=== PATIENT | female | born 1965 | race Caucasian/White ===

== ENCOUNTER 2024-04-29 00:51 | Inpatient (IN) | payer OTHER, SELFPAY ==
[2024-04-28 16:09] VITALS: BP 148/95
[2024-04-28 16:37] LABS: % Basophils 0.6 % (0-2); % Eosinophils 0.1 % (0-6); % Immature Granulocytes 0.3 % (0-0.5); % Lymphocytes 8.4 % (20.5-51.1); % Monocytes 6.6 % (1.7-9.3); Absolute Basophils 0.1 10^3/uL (0-0.2); Absolute Lymphocytes 0.8 10^3/uL (1.2-3.4); Absolute Monocytes 0.6 10^3/uL (0.1-0.6); Absolute Neutrophils 7.6 10^3/uL (1.4-6.5); Hematocrit 38.1 % (37.0-47.0); Hemoglobin 14.2 g/dL (12.0-16.0); Mean Corp Hgb Conc. 37.3 g/dL (33.0-37.0); Mean Corpuscular Hgb 31.6 pg (27.0-31.0); Mean Corpuscular Volume 84.9 fL (81.0-99.0); Mean Platelet Volume 10.5 fL (7.4-10.4); Nucleated Red Blood Cells % 0 %; Platelet Count 288 10^3/uL (130-400); Red Blood Cell Count 4.49 10^6/uL (4.20-5.40); Red Cell Dist. Width 11.7 % (11.5-14.5)
[2024-04-28 16:49] LABS: ALT (SGPT) 28 U/L (0-35); AST (SGOT) 45 U/L (14-36); Albumin 4.6 g/dl (3.5-5.0); Alkaline Phosphatase 137 U/L (38-126); Blood Urea Nitrogen 8 mg/dl (7-17); Calcium 9.7 mg/dl (8.4-10.2); Carbon Dioxide 29 mmol/L (22-30); Chloride 92 mmol/L (98-107); Glucose 123 mg/dl (70-99); Potassium 3.1 mmol/L (3.5-5.1); Sodium 132 mmol/L (135-145); Total Bilirubin 1.3 mg/dl (0.2-1.3); Total Protein 7.6 g/dl (6.3-8.2); eGFR > 60.00
[2024-04-28 16:50] LABS: Lipase 76 U/L (23-300)
[2024-04-28 16:58] LABS: HCG, Serum Qualitative Screen Positive
[2024-04-28 19:20] VITALS: BP 149/90
[2024-04-28 20:00] VITALS: BP 130/82
[2024-04-28 20:09] VITALS: BMI 31.4
[2024-04-28 20:37] LABS: Urine Albumin Trace (Neg - Trace); Urine Bilirubin 1+ (Negative); Urine Character Slightly Cloudy (Clear); Urine Color Amber; Urine Glucose Negative (Negative); Urine Ketone 3+ (Negative); Urine Leukocyte 2+ (Negative); Urine Nitrite Negative (Negative); Urine Occult Blood Trace (Negative); Urine Urobilinogen 3+ (Neg - 1+); Urine pH 6.5 (5.0-9.0)
[2024-04-28 21:01] LABS: Urine Bacteria Moderate (Negative); Urine Red Blood Cell 0-2 /HPF (0-2); Urine Squamous Cell >30 /LPF (Few); Urine White Cell 70-80 /HPF (0-5)
[2024-04-28 21:07] LABS: Beta HCG Quantitative 4.35 mIU/ml
[2024-04-28 21:16] VITALS: BP 144/104
[2024-04-28] MEDS: PROTONIX IV 40 MG IV (21:36)
[2024-04-28] MEDS: ZOFRAN 4 MG IV (21:36)
[2024-04-28] MEDS: NSS 1000 IV (21:36)
--- NOTE | 2024-04-28 21:36 | ED.GENMED ---
History of Present Illness
General
Chief Complaint: Abdominal Symptoms
Source: patient
Exam Limitations: none
Time Seen by Provider: 04/28/24 19:48
Nursing documentation reviewed up to this point in time: agreed with
History of Present Illness
History of Present Illness:
58-year-old female with a history of bipolar disorder and chronic GERD on Nexium presents for epigastric discomfort and nausea vomiting newly began 3 days ago. Patient says she vomited many times over the course of 24 hours and had a little bit of
diarrhea as well. After vomiting so much she has pain in both of her ribs when she would move. She says that she really has not been eating much over the last 24 hours because she is afraid she will vomit. She feels dehydrated. She was post to
start an partial program for her depression which has flared up over the last couple months which she presumes is flaring up her GERD because when she is stressed she tends to have more GERD symptoms and she could not start the program today because
of how dehydrated and uncomfortable she felt. She does have epigastric pain. She has not had any pleuritic chest pain, shortness of breath, fever or chills, bloody or black stool, coffee-ground emesis. She does not use marijuana.
She denies any SI
Past History
Past History
ED Past Medical History: GERD and Psychiatric
Social History
Living: with family
Employment: Employed
Review of Systems
Review of Systems
Allergies reviewed?: Yes
All Other Systems: Not applicable
Phy Exam
Physical Exam
Physical Exam:
GENERAL: Alert , in no apparent distress
EYE: pupils equal and reactive
NECK: Supple
ENT: o/p clr, dry mouth
CARDIAC: Regular rate and rhythm .
LUNGS: Clear breath sounds bilaterally, no acute respiratory distress, no wheezes/rales/rhonchi
ABDOMEN: Soft, w tender epigastric region and right upper quadrant without a Simeon's sign no r/g, no cvat, normal bowel sounds
NEUROLOGICAL: Alert and oriented, no focal neuro deficits
SKIN: Warm and dry, skin intact.
MUSCULOSKELETAL: No edema, well perfused. neg thais's sign
PSYCH: Normal and appropriate interaction.
Course
Orders/Labs/Results
Orders:
Orders
04/28/24 16:16
Test Result ONCE
04/28/24 16:24
Beta HCG Quantitative Urgent
Comment: ADDED
Complete Blood Count/With Diff Urgent
Comprehensive Metabolic Panel Urgent
HCG, Serum Qualitative Screen Urgent
Lipase Urgent
04/28/24 20:19
Add On- LAB Urgent
Tests Added?: BETA QUANTITATIVE
Electrocardiogram (*1) Urgent
Reason for Study: Abdominal Pain
EKG- Treatment ONCE
0.9% Sodium Chloride 1000 ml [Nss] 1,000 ml IV BOLUS
Ondansetron Injectable [Zofran] 4 mg IV NOW STA
Pantoprazole [Protonix IV] 40 mg IV NOW STA
04/28/24 20:20
US Abdomen Complete/Upper Urgent
Comment:
Reason For Exam: UPPER ABD PAIN, VOMITNIG
04/28/24 20:29
Urinalysis Reflex To Culture Urgent
Date Specimen was Collected: 04/28/24
Time Specimen was Collected: 20:23
Urine Microscopic Reflex Cult Urgent
Urine Culture Urgent
ROBBIE Source: U
Specimen Description:
Date Specimen was Collected: 04/28/24
Time Specimen was Collected: 20:23
04/28/24 21:16
CT Abd/Pel (IV only)-DH only Urgent
Comment:
Reason For Exam: upper abd
04/28/24 21:22
Sterile Water [Sterile Water For Injection] 10 ml .ROUTE .STK-MED ONE
04/28/24 22:42
Troponin I Urgent
04/28/24 23:56
Ampicillin/Sulbactam 3 G [Unasyn] 3 gm 0.9% Sodium Chloride 100 ml [Nss] 100 ml IV NOW
Abnormal Lab Results
04/28/24 04/28/24
16:24 20:29
MCH 31.6 H pg
(27.0-31.0)
MCHC 37.3 H g/dL
(33.0-37.0)
MPV 10.5 H fL
(7.4-10.4)
Absolute Neuts (auto) 7.6 H 10^3/uL
(1.4-6.5)
Absolute Lymphs (auto) 0.8 L 10^3/uL
(1.2-3.4)
Neutrophils % 84.0 H %
(42.2-75.2)
Lymphocytes % 8.4 L %
(20.5-51.1)
Sodium 132 L mmol/L
(135-145)
Potassium 3.1 L mmol/L
(3.5-5.1)
Chloride 92 L mmol/L
(98-107)
Glucose 123 H mg/dl
(70-99)
AST 45 H U/L
(14-36)
Alkaline Phosphatase 137 H U/L
(38-126)
Urine Ketones 3+ A
(Negative)
Ur Occult Blood Reflex Trace A
(Negative)
Urine Bilirubin 1+ A
(Negative)
Urine Urobilinogen 3+ A
(Neg - 1+)
Leukocyte Esterase Rfl 2+ A
(Negative)
Urine WBC (Reflex) 70-80 A /HPF
(0-5)
Urine Bacteria (Reflex) Moderate A
(Negative)
04/28/24 16:24
04/28/24 16:24
Vital Signs
Initial and Last Documented VS:
Initial Vital Signs
Temp Pulse Resp BP Pulse Ox
37.2 C 95 18 148/95 98
04/28/24 16:09 04/28/24 16:09 04/28/24 16:09 04/28/24 16:09 04/28/24 16:09
Last Documented Vital Signs
Temp Pulse Resp BP Pulse Ox
37.2 C 79 28 144/104 99
04/28/24 16:09 04/28/24 23:15 04/28/24 23:15 04/28/24 21:16 04/28/24 23:15
MDM/Problems Addressed
Differential Diagnosis Includes:
Gastritis, peptic ulcer disease, gastroenteritis, GI bleed, NSTEMI, pancreatitis
MDM/Problems Addressed:
58-year-old female with history of GERD presents for nausea vomiting and epigastric pain over the last several days causing her decreased p.o. intake. She feels dehydrated. She is having some soreness in both ribs after vomiting so much. She
never saw any coffee-ground or black emesis and she has not had any black stool. She has never had any abdominal surgery. She has had endoscopies previously but not recently. On exam she is afebrile, has dry mucous membranes, epigastric
tenderness and right upper quadrant tenderness without a Simeon sign, no abdominal distention. Heart lungs sound good. Her serum hCG qualitative test was positive, her beta hCG is 4. She has no reported history of any endocrine disease, ovarian
cancer or tumors that she knows of.
Patient's white count is normal, her lipase is normal, she has a mild transaminitis with AST of 45 and alk phos of 137. She is pending ultrasound of her right upper quadrant but then with the beta-hCG in the setting of being postmenopausal and not
having had intercourse in several years she will be worked up with a CAT scan.
US shows gallstones and sludge and thickenign of GB wall, no simeon's sign or pericholecystic fluid
her CT --> which was done because of elevated Beta hcg level and concerns for possible occult malignancy causing beta to be 4, was neg for any other obvious concerns other than the GB;
d/w surgery who recommended hospitalist admission
iv unasyn
npo
*Critical Care Note
Total Time (30-74mins, 75-104mins- exclusive of procedures): Not Applicable
ED Attending Note
-
Portions of this chart may have been created with voice recognition software.� Occasional wrong word or��sound alike� substitutions may have occurred due to the inherent limitations of voice recognition software.
Discharge Plan
Departure
Patient Disposition: Admit
Date of Disposition: 04/28/24
Time of Disposition: 23:55
Admit to: Med/Surg
Presentation/result/management discussed w/ accepting MD/DO: Hospitalist
Condition: Fair
Covid-19: Not Applicable
Discharge Problem:
Acute cholecystitis
Prescriptions:
No Action
Risperidone
0.5 mg PO DAILY
Nexium
4 mg PO DAILY
Zoloft:
50 mg PO DAILY
Rhinocort Nasal [place]
2 sprays intranasal BID
BENADRYL
FOLIC ACID
Feosol
Vitamins
Pulmocort Inhaler
10 mcg inhalation BID
Referrals:
John Jorgensen MD [Family Provider] -
Interventions
Interventions:
*Risk Screen - Suicide Last Done: 04/28/24 16:09
*General Assessment Last Done: 04/28/24 16:09
ED- Fall Risk Assessment Last Done: 04/28/24 20:09
*ED COVID-19 Vaccine History Last Done: 04/28/24 20:09
ER-Hdkyim-Clkopqnyce Assessment Last Done: 04/28/24 21:50
Discharge Date and Time
Print Language: QATARI
[2024-04-28 23:13] LABS: Troponin I 0.015 ng/ml
[2024-04-28 23:49] VITALS: BP 153/69
[2024-04-29] VITALS (10 sets, daily range): BP systolic 119–158; BP diastolic 56–92; BMI 31.1
[2024-04-29] MEDS: UNASYN IV ×3 (00:17→12:30)
--- NOTE | 2024-04-29 00:42 | HPS.HSE ---
Family Physician
-
Family Physician: John Jorgensen
Chief Complaint
-
Abdominal pain
History of Present Illness
This is a 58-year-old female with past medical history significant for GERD and bipolar disorder who presents to the emergency department with intermittent epigastric and abdominal pain for the last 3 days.
Patient started having epigastric discomfort with nausea and vomiting about 3 days ago. She reports multiple episodes of vomiting over the last 24 hours with small amount of loose stools. She reports epigastric pain in bilateral lower thoracic and
upper quadrant regions. She reports dry mouth, decreased oral intake over the last 3 to 4 hours. She presumed history of GERD and took some Tums but there was no improvement.
She denies any fevers or chills. She denied any melena, hematochezia or hematemesis. She denies etoh. She denies any drug use.
In the emergency department she was afebrile, blood pressure was 144/100 with a pulse of 79. ECG showed normal sinus rhythm at rate of 81. Troponin was negative. UA was contaminated. She had no leukocytosis and had normal hemoglobin and platelet
count. Electrolytes notable for a sodium of 132 and a potassium of 3.1 otherwise unremarkable. Normal BUN/creatinine. LFTs are within normal limits. Lipase was negative.
Irregular quadrant ultrasound showed sludge filled gallbladder lumen with likely gallstone present, thickened gallbladder wall with pericholecystic edema but negative sonographic Simeon sign. A CT of the abdomen pelvis also showed a 2 cm
noncalcified gallstone. There is surrounding hypodensity of sludge within the gallbladder. There is gallbladder wall thickening with stranding of the adjacent fat which are consistent with acute cholecystitis.
Medical History
Past Medical History
Past Medical History: Reports GERD and Psychiatric (Bipolar disorder)
Past Surgical History: Reports None
Social History
Tobacco: Non-smoker
Alcohol: Former
Drug: None
Personal: Single
Living: With Family
Employment: Employed
Family History
Family History: Not pertinent
Allergies / Home Medications
Allergies reflects when Allergies were last updated in [facility].
Home Medications with original date entered in [facility]
Allergy/Medication List:
Allergies
Allergy/AdvReac Type Severity Reaction Status Date / Time
No Known Allergies Allergy Unverified 01/26/10 16:18
Home Medications
Lorazepam 0.5 mg tablet, 0.5 mg tablet p.o. daily as needed anxiety
Trazodone 50 mg tablet, 50 mg to 100 mg p.o. daily as needed insomnia
Oxcarbazepine 300 mg tablet, take 1 300 mg tablet twice daily
Wellbutrin 150 mg tablet, take 150 mg p.o. daily
Lexapro 25 mg, take 25 mg p.o. daily
Review of Systems
-
Constitutional: Reports No Symptoms
EENT: Reports No Symptoms
Respiratory: Reports No Symptoms
Cardiac: Reports No Symptoms
Abdomen/GI: Reports Abdominal Pain, Nausea and Vomiting
: Reports No Symptoms
Musculoskeletal: Reports No Symptoms
Skin: Reports No Symptoms
Neurological: Reports No Symptoms
Endocrine: Reports No Symptoms
Hematologic/Lymphatic: Reports No Symptoms
Psych: Reports No Symptoms
Physical Exam
Vital Signs
Vital Signs
Temp Pulse Resp BP Pulse Ox
98.9 F 81 24 119/57 98
04/28/24 16:09 04/29/24 00:30 04/29/24 00:30 04/29/24 00:00 04/29/24 00:30
Physical Exam
General: Well Developed, Well Nourished and No Apparent Distress
HEENT: NormoCephalic, Anicteric, Moist mucous membranes and Atraumatic
Respiratory: Clear
Cardiac: S1/S2 and Regular Rhythm
Breast: Deferred by me
GI: Soft, Non Distended, Normal Bowel Sounds and Tender
Rectal: Deferred by Provider
Genito-urinary: Deferred by me
Musculoskeletal: No Clubbing, No Cyanosis and No Edema
Neuro: AO x 3
Hematologic/Lymphatic: No Lymphadenopathy
Psych: Calm
Laboratory Results
-
04/28/24 16:24
04/28/24 16:24
Laboratory Results
Total Bilirubin 1.3 mg/dl (0.2-1.3) 04/28/24 16:24
AST 45 U/L (14-36) H 04/28/24 16:24
ALT 28 U/L (0-35) 04/28/24 16:24
Alkaline Phosphatase 137 U/L (38-126) H 04/28/24 16:24
Troponin I 0.015 ng/ml 04/28/24 22:42
Lipase 76 U/L (23-300) 04/28/24 16:24
Data Reviewed
-
CT Scan: Report Reviewed by me
Ultrasound: Report Reviewed by me
Medical Tests (Nuc Med, Echo, EKG etc): Image Personally Visualized and interpreted
Lab Data: Labs Reviewed by me
Old Records: Reviewed
Impression/Plan
-
IMPRESSION:
58-year-old presenting with nausea vomiting and abdominal pain. Imaging consistent with acute cholecystitis. Differential also includes acute gastritis. UA is equivocal with some positive findings but apparent contamination with squamous cells.
Unlikely UTI. Beta-hCG was elevated. No findings of ovarian or uterine mass.
PLAN:
1. Abdominal pain - U/S and CT c/w acute cholecystitis but no simeon sign. Possibly biliary colic versus gastritis. No evidence of acute pancreatitis
- admit to med/surg
- iv unasyn for now
- pain control and antiemetics
- IV fluids
- npo for now
- PPI iv bid
- surgery consultation. They are aware
2. BIPOLAR
- oral meds on hold pending surg consult [oxcarbamazepine 300 bid, wellbutrin 150, trazodone 50 and lexapro 25)
- prn lorazepam iv for anxiety
DVT PPX - lovenox sq
Code status - full code
[2024-04-29] MEDS: KCL 260 MEQ IV (01:35)
[2024-04-29] MEDS: FLUSH (NSS) 1 FLUSH IV (01:35)
[2024-04-29] MEDS: LR 1000 IV (05:12)
[2024-04-29 06:47] LABS: Hematocrit 32.6 % (37.0-47.0); Hemoglobin 12.1 g/dL (12.0-16.0); Mean Corp Hgb Conc. 37.1 g/dL (33.0-37.0); Mean Corpuscular Hgb 31.8 pg (27.0-31.0); Mean Corpuscular Volume 85.8 fL (81.0-99.0); Mean Platelet Volume 10.7 fL (7.4-10.4); Platelet Count 216 10^3/uL (130-400); Red Cell Dist. Width 11.8 % (11.5-14.5); White Blood Cell Count 8.2 10^3/uL (4.8-10.8)
[2024-04-29 06:55] LABS: Blood Urea Nitrogen 7 mg/dl (7-17); Calcium 8.7 mg/dl (8.4-10.2); Carbon Dioxide 27 mmol/L (22-30); Chloride 97 mmol/L (98-107); Estimated Creatinine Clearance 109 ml/min; Glucose 110 mg/dl (70-99); Magnesium 1.6 mg/dl (1.6-2.3); Potassium 3.1 mmol/L (3.5-5.1); Sodium 133 mmol/L (135-145); eGFR > 60.00
[2024-04-29] MEDS: NSS (PRESERVATIVE FREE) 10 ML IV (09:14)
[2024-04-29] MEDS: PROTONIX IV 40 MG IV (09:14)
--- NOTE | 2024-04-29 09:21 | CON.GS ---
Consultation
-
Requesting Provider: [place]
Performing Provider: Ankush
Reason for Consultation: Biliary colic
Medical History
-
Chief Complaint: Abd pain
History of Present Illness:
58F with acute onset abd pain that began 3 days ago. Localized to epigastrium, a/w n/v. Denies f/c. Denies changes to stool/urine. No relieving or exacerbating factors. This am she feels better. Long hx of reflux pain but this felt different.
Past Medical History
Past Medical History: GERD and Psychiatric (depression)
Past Surgical History: Reviewed & Noncontributory
Social History
Tobacco: Non-Smoker
Alcohol: Former
Drug: None
Personal: Single
Living: With Family
Employment: Employed
Family History
Family History: Reviewed & Not Pertinent
Allergies / Home Medications
Allergy/AdvReac Type Severity Reaction Status Date / Time
No Known Allergies Allergy Unverified 01/26/10 16:18
�Medication �Instructions �Recorded �Confirmed �Type
Nexium 40 mg PO BID 01/26/10 04/29/24 History
Vitamins 1 tab PO DAILY 01/26/10 04/29/24 History
albuterol 90 mcg/actuation aerosol 1 mcg inhalation Q4 PRN wheezing 04/29/24 04/29/24 History
inhaler
bupropion HCl 150 mg 24 hr tablet, 150 mg PO DAILY 04/29/24 04/29/24 History
extended release (Wellbutrin XL)
escitalopram oxalate 20 mg tablet 20 mg PO DAILY 04/29/24 04/29/24 History
escitalopram oxalate 5 mg tablet 5 mg PO DAILY 04/29/24 04/29/24 History
lorazepam 0.5 mg tablet 0.5 mg PO DAILY PRN anxiety 04/29/24 04/29/24 History
oxcarbazepine 300 mg tablet 300 mg PO BID 04/29/24 04/29/24 History
trazodone 50 mg tablet 50 mg PO HS PRN insomnia 04/29/24 04/29/24 History
Review of Systems
-
A 10 point review of systems was completed, and was negative except as per HPI.
Physical Exam
Vital Signs
Temp Pulse Resp BP Pulse Ox
98.9 F 81 26 139/89 98
04/28/24 16:09 04/29/24 08:15 04/29/24 08:15 04/29/24 07:00 04/29/24 08:15
04/28/24 04/29/24 04/30/24
06:59 06:59 06:59
Actual Weight 83 kg 82.214 kg
Body Mass Index (BMI) 31.1
Lab Results
04/29/24 06:18
04/29/24 06:18
WBC 8.2 10^3/uL (4.8-10.8) 04/29/24 06:18
Hgb 12.1 g/dL (12.0-16.0) 04/29/24 06:18
Hct 32.6 % (37.0-47.0) L 04/29/24 06:18
Plt Count 216 10^3/uL (130-400) D 04/29/24 06:18
Abs Immat Gran (auto) 0.0 10^3/uL (0-0.05) 04/28/24 16:24
Neutrophils % 84.0 % (42.2-75.2) H 04/28/24 16:24
Physical Exam
General: Well Developed, Well Nourished and No Apparent Distress
HEENT: Normocephalic and Anicteric
GI: Soft, Non Distended and Tender (mild RUQ ttp)
Skin: Warm and Dry
Neuro: AO x 3
Data Reviewed
-
CT Scan: Image Personally Visualized and interpreted, Report Reviewed by me, Discussed with Physician and Discussed with Patient
Ultrasound: Image Personally Visualized and interpreted, Report Reviewed by me, Discussed with Physician and Discussed with Patient
Labs: Labs Reviewed by me and Discussed with Patient
Old Records: Reviewed
Assessment / Plan
-
58F with biliary colic
Clinically improved this am, mild ttp to RUQ
AFVSS, no leukocytosis
US with stones and sludge, no GBWT nor PCF, no ductal dilation neg sono artis's
CT with distended GB
We discussed surgery today with DC home most likely today vs tomorrow. We also discussed PO challnege, DC home, and return for elective CCY at a date in the near future. Given the holiday and her clinical improvement, she prefers to go home today if
possible
Plan:
PO challenge
DC home if tolerates
--- NOTE | 2024-04-29 13:15 | PTCARENOTE ---
Pt arrived from ED at aprox 0850. Pt able to walk into room unassisted. Admission and assessment done. Vitals stable. No c/o pain at this time. Dr Lechuga in and told patient surgery can be scheduled as outpatient. Pt ordered something to eat and
did fine with it. Dr Lechuga notified and will DC patient home.
--- NOTE | 2024-04-29 13:22 | W.PN.UPDATE ---
Update Note
Progress Note Update
Pt tolerated a small meal without recurrent symptoms. ok for dc
== END 2024-04-29 15:40 | disposition home or self-care (01) | DRG 446 ==
LOC: 2 SOUTH 00:51
PROVIDERS: Emergency Medicine; Physician Assistant; ADMITTING PHYSICIAN Internal Medicine; ATTENDING PHYSICIAN Surgery; EMERGENCY PHYSICIAN Emergency Medicine; FAMILY PHYSICIAN Family Medicine
DX: K80.00 Calculus of gallbladder with acute cholecystitis without obstruction (principal); K21.9 Gastro-esophageal reflux disease without esophagitis; F31.9 Bipolar disorder, unspecified; E86.0 Dehydration; F41.9 Anxiety disorder, unspecified; Z79.899 Other long term (current) drug therapy
CPT/HCPCS: 74177; 76700; 80048; 80053; 81003; 81015; 83690; 83735; 84484; 84702; 84703; 85025; 85027; 87086; 93005; 96361; 96365; 96375; 99285; Q9967

== ENCOUNTER 2024-05-09 09:41 | Inpatient (IN) | payer OTHER, SELFPAY ==
[2024-05-04] VITALS (8 sets, daily range): BP systolic 110–136; BP diastolic 59–73; BMI 31.5
[2024-05-04 12:07] LABS: % Basophils 1.1 % (0-2); % Eosinophils 0.9 % (0-6); % Immature Granulocytes 0.2 % (0-0.5); % Lymphocytes 13.7 % (20.5-51.1); % Monocytes 7.1 % (1.7-9.3); Absolute Basophils 0.1 10^3/uL (0-0.2); Absolute Lymphocytes 0.6 10^3/uL (1.2-3.4); Absolute Monocytes 0.3 10^3/uL (0.1-0.6); Absolute Neutrophils 3.4 10^3/uL (1.4-6.5); Hemoglobin 12.2 g/dL (12.0-16.0); Mean Corpuscular Hgb 31.7 pg (27.0-31.0); Mean Corpuscular Volume 85.7 fL (81.0-99.0); Mean Platelet Volume 11.1 fL (7.4-10.4); Nucleated Red Blood Cells % 0 %; Platelet Count 297 10^3/uL (130-400); Red Blood Cell Count 3.85 10^6/uL (4.20-5.40); Red Cell Dist. Width 11.7 % (11.5-14.5); White Blood Cell Count 4.4 10^3/uL (4.8-10.8)
[2024-05-04 12:27] LABS: ALT (SGPT) 22 U/L (0-35); AST (SGOT) 26 U/L (14-36); Albumin 4.1 g/dl (3.5-5.0); Alkaline Phosphatase 140 U/L (38-126); Blood Urea Nitrogen 5 mg/dl (7-17); Calcium 9.1 mg/dl (8.4-10.2); Carbon Dioxide 32 mmol/L (22-30); Chloride 93 mmol/L (98-107); Glucose 93 mg/dl (70-99); Lipase 161 U/L (23-300); Sodium 135 mmol/L (135-145); Total Bilirubin 0.6 mg/dl (0.2-1.3); Total Protein 6.7 g/dl (6.3-8.2); eGFR > 60.00
[2024-05-04] MEDS: NSS 1000 IV ×2 (14:29→17:21)
[2024-05-04] MEDS: TORADOL 15 MG IV (14:29)
--- NOTE | 2024-05-04 14:32 | ED.GENMED ---
History of Present Illness
General
Chief Complaint: Abdominal Pain
Source: patient
Exam Limitations: none
Time Seen by Provider: 05/04/24 14:12
Nursing documentation reviewed up to this point in time: agreed with
History of Present Illness
History of Present Illness:
Patient is a 58-year-old female with known gallstones presenting to the emergency department persistent epigastric discomfort and mild shortness of breath. Patient recently admitted at overnight with suspected acute cholecystitis, was offered
surgery at that time, although opted for discharge home with elective cholecystectomy in May. She does have a consultation scheduled for mid May with Dr. Ashley.
However�patient states she has had persistent epigastric/right upper quadrant pain and worsening shortness of breath of the past few days. She also feels constipated. She denies any nausea, vomiting, or fever. She has been taking ibuprofen for
pain at home.
Past History
Past History
ED Past Medical History: GERD and Psychiatric
Social History
Living: with family
Employment: Employed
Review of Systems
Review of Systems
Allergies reviewed?: Yes
All Other Systems: ROS reviewed and negative except as documented in HPI and ROS
Phy Exam
Physical Exam
Physical Exam:
Vitals: Patient's vital signs are stable. Afebrile
General: Patient is in no apparent distress. Nontoxic appearing
Skin: Warm and dry, no rashes or lesions
Head: Normocephalic, atraumatic
Eyes: Sclera nonicteric. EOMs intact. No nystagmus.
Throat: Protecting airway
Neck: Normal ROM, no cervical spine tenderness, no meningismus
Cardiac: Regular rate and rhythm, no murmurs.
Pulm: Normal respiratory effort, no wheezes, rales, rhonchi heard on exam.
Abdomen: Abdomen soft. Moderate epigastric and right upper quadrant abdominal pain with positive Simeon sign. No rebound tenderness
Extremities: No evidence of cyanosis or edema. Palpable distal pulses
Neuro: AAOx3. Grossly intact.
Psychiatric: Normal affect.
Course
Orders/Labs/Results
Orders:
Orders
05/04/24 11:53
Electrocardiogram (*1) Urgent
Reason for Study: Abdominal Pain
EKG- Treatment ONCE
05/04/24 11:57
Complete Blood Count/With Diff Urgent
Comprehensive Metabolic Panel Urgent
Lipase Urgent
05/04/24 14:20
0.9% Sodium Chloride 1000 ml [Nss] 1,000 ml IV BOLUS
Ketorolac [Toradol] 15 mg IV NOW STA
05/04/24 14:[address] [CT Abdomen With Iv Contrast] Urgent
Comment: known gallstones
Reason For Exam: RUQ/epigastric pain
05/04/24 14:48
Consult Surgery [SURGICAL CONSULT] Urgent
Consulting Provider: David Ashley
Was physician already notified: Yes
05/04/24 14:52
Piperacillin/Tazo 3.375 Gram [Zosyn] 3.375 gram in 50 ml IV NOW
05/04/24 Dinner
Clear Liquid
At Your Request: Full Participation
05/04/24 15:21
Admit Patient As Directed
Co-Sign Provider:
Level of Care: Observation services
Assign to:: Medical/Surgical
Physician / Group: Dion/General surgery
Diagnosis: Biliary colic
Code Status As Directed
Resuscitation Status: Full Code
Acetaminophen [Tylenol] 650 mg PO Q4HPRN PRN
HYDROmorphone [Dilaudid] 0.25 mg IV Q4HPRN PRN
HYDROmorphone [Dilaudid] 0.5 mg IV Q4HPRN PRN
Oxycodone [Roxicodone] 5 mg PO Q4HPRN PRN
Activity As Directed
Activity Level: Out of Bed-Early Mobility
Anti-embolism (CYNTHIA) Hose As Directed
Type: Thigh high
Intake/ Output As Directed
Frequency: Per unit guidelines
Vital Signs As Directed
Frequency: Per unit guidelines
PRN Pain Medication Management As Directed
May give lesser potent ordered pain med per pt: Yes
preference::
Protocol:: Medication orders for pain may be administered in a
manner that supports deferring to patient preference
when the pt is:
- Requesting an ordered lesser potent pain medication.
Least to most potent pain medications are defined
as: acetaminophen < NSAID < tramadol < opioids
(morphine, oxycodone, hydromorphone).
- Requesting a lesser dose of the same medication IF
ORDERED.
- Requesting a less intrusive route of administration
if both routes are prescribed by the provider (PO <
IV).
05/04/24 15:22
Pneumatic Compression Sleeves As Directed
Type: Thigh high
Rx Incentive Spirometry [RESP] Routine
Frequency: q1h while awake
# of times per hour: 10
DX Deep Vein Thrombosis Video Routine
05/04/24 15:26
Prochlorperazine [Compazine] 10 mg IV Q6HPRN PRN
05/04/24 15:30
0.9% Sodium Chloride 1000 ml [Nss] 1,000 ml IV 80 mls/hr
05/04/24 15:43
Lorazepam [Ativan] 0.5 mg PO DAILY PRN
Trazodone [Desyrel] 50 mg PO HSPRN PRN
05/04/24 15:49
Potassium Chloride [KCl] 40 meq PO NOW STA
05/04/24 20:00
Docusate Sodium [Colace] 100 mg PO BID
Oxcarbazepine [Trileptal] 300 mg PO BID
Pantoprazole [Protonix] 40 mg PO BID
Piperacillin/Tazo 3.375 Gram [Zosyn] 3.375 gram in 50 ml IV Q6H
05/05/24 Breakfast
NPO
Allow oral meds: Yes
Allow clear liquids: No
Complete Blood Count/No Diff IN AM
Comprehensive Metabolic Panel IN AM
Magnesium IN AM
Phos [Phosphorus] IN AM
05/05/24 08:00
Bupropion(24Hr)Extended Releas [WELLBUTRIN XL (24 hour extended release)] 150 mg PO DAILY
Escitalopram Oxalate [Lexapro] 20 mg PO DAILY
Escitalopram Oxalate [Lexapro] 5 mg PO DAILY
Abnormal Lab Results
05/04/24
11:57
WBC 4.4 L 10^3/uL
(4.8-10.8)
RBC 3.85 L 10^6/uL
(4.20-5.40)
Hct 33.0 L %
(37.0-47.0)
MCH 31.7 H pg
(27.0-31.0)
MPV 11.1 H fL
(7.4-10.4)
Absolute Lymphs (auto) 0.6 L 10^3/uL
(1.2-3.4)
Neutrophils % 77.0 H %
(42.2-75.2)
Lymphocytes % 13.7 L %
(20.5-51.1)
Potassium 3.0 L mmol/L
(3.5-5.1)
Chloride 93 L mmol/L
(98-107)
Carbon Dioxide 32 H mmol/L
(22-30)
BUN 5 L mg/dl
(7-17)
Alkaline Phosphatase 140 H U/L
(38-126)
05/04/24 11:57
05/04/24 11:57
Vital Signs
Initial and Last Documented VS:
Initial Vital Signs
Temp Pulse Resp BP Pulse Ox
98 F 82 16 136/73 98
05/04/24 11:50 05/04/24 11:50 05/04/24 11:50 05/04/24 11:50 05/04/24 11:50
Last Documented Vital Signs
Temp Pulse Resp BP Pulse Ox
98.1 F 68 18 123/66 100
05/04/24 17:27 05/04/24 17:27 05/04/24 17:27 05/04/24 17:27 05/04/24 17:27
MDM/Problems Addressed
Differential Diagnosis Includes:
Not limited to: Biliary colic, acute cholecystitis, choledocholithiasis, cholangitis, pancreatitis, etc.
MDM/Problems Addressed:
Patient is a 58-year-old female with known gallstones presenting with persistent epigastric/right upper quadrant tenderness and worsening shortness of breath. Discharge from [facility] 5 days ago after 1 night stay for biliary colic and
similar symptoms. She did prefer outpatient management and elective cholecystectomy in coming months given upcoming holiday. Presents with persistent/worsening pain. No fever or vomiting. No chest pain. Patient has stable vital signs and is
afebrile on arrival today. On exam�she is mildly uncomfortable due to pain although nontoxic appearing. Abdomen is soft with moderate epigastric/right upper quadrant tenderness and positive Simeon sign. Cardio/pulmonary assessment unremarkable.
Labs initiated in triage shows very mild leukopenia. She does have a mild respiratory alkalosis likely secondary to to pain. Mild hypokalemia alk phos slightly higher than prior visit. EKG without any acute ischemic changes. Will start IV fluids
and Toradol for pain.
Given recent admission�case was immediately discussed with general surgeon on-call, Dr. Ashley who recommends repeat CT abdomen. Zosyn initiated in emergency department. Patient admitted to general surgery service in stable condition pending
results of CT scan. Plan for n.p.o. at midnight in OR tomorrow for cholecystectomy.
Chronic conditions affecting care:
Cholelithiasis
Acute Exacerbation and/or Progression of Chronic Illness:
Acute cholecystitis
*Radiology
Radiology exam reviewed: radiology read reviewed
*Pulse Oximetry
Patient hypoxic: no
*EKG
Interpreted by ED Provider?: Yes
EKG Intrepretation Date: 05/04/24
Interpretation: normal
Comparison EKG: changes noted
Heart Rate: 74
Rate: normal
Rhythm: sinus
[place]: normal axis
Interval: normal QT interval
QRS Pattern: normal QRS
Ischemia: non-specific ST changes
*Sharepoint Application Developer Interpretation
Rate: Sharepoint Application Developer- N/A
*Critical Care Note
Total Time (30-74mins, 75-104mins- exclusive of procedures): Not Applicable
Data Reviewed
Review of Other/Old Records Reveals: Labs (Labs from hospital admission on 04/28/2024-no leukocytosis, mild LFT elevation) and Radiology Studies (Abdominal ultrasound from 04/28/2024 showing evidence of gallbladder sludge and slightly thickened
gallbladder wall)
Source: previous hospital records
Further Testing Considered But Not Given:
Consider repeat abdominal ultrasound although will obtain abdominal CT for better visualization per general surgery request
Patient Management
Discussion with other providers: Records Management Clerk (General Surgery-Dr. Ashley)
Escalation/DeEscalation of care consider admission/obs:
Admit to general surgery service�plan for OR tomorrow for cholecystectomy
ED Attending Note
-
Portions of this chart may have been created with voice recognition software.� Occasional wrong word or��sound alike� substitutions may have occurred due to the inherent limitations of voice recognition software.
Discharge Plan
Departure
Patient Disposition: Admit
Date of Disposition: 05/04/24
Time of Disposition: 15:50
Presentation/result/management discussed w/ accepting MD/DO: Dr. Ashley
Discharge Problem:
Acute cholecystitis
Interventions
Interventions:
*Risk Screen - Suicide Last Done: 05/04/24 11:50
*General Assessment Last Done: 05/04/24 14:13
*Neglect/Abuse Screening Last Done: 05/04/24 11:50
ED- Fall Risk Assessment Last Done: 05/04/24 16:57
*ED COVID-19 Vaccine History Last Done: 05/04/24 14:13
*Nursing Disposition Last Done: 05/04/24 16:57
VZ-Jppccq-Zdykduuwvx Assessment Last Done: 05/04/24 14:13
Discharge Date and Time
Discharge Date/Time: 05/04/24 17:11
[2024-05-04] MEDS: ZOSYN 50 IV ×2 (14:58→19:46)
--- NOTE | 2024-05-04 15:20 | HPS.HSE ---
Family Physician
-
Family Physician: John Jorgensen
Chief Complaint
-
Abdominal pain
History of Present Illness
Ms Deras is a 58 yo female with a h/o GERD and bipolar depression who presented through the ED with persistent RUQ discomfort with nausea and vomiting. She initially presented through the ED on 04/28 with localized epigastric pain with n/v with US
imaging at that time with sludge in the gallbladder lumen with slightly thickened wall without pericholecystic edema. Ct in follow up with 2cm gallstone in addition to the sludge with some thickening of the gallbladder wall and adjacent
inflammation. She had normal LFT's and no leukocytosis at that time. She felt better by the next morning with successful PO challenge and in light of the holiday, opted to follow up as an outpatient for planned cholecystectomy at a later date. She
presents today as her pain has become more persistent. Over the past week, she has noted it mostly at night with worsening symptoms of GERD. Since last night, the pain was quite persistent with nausea and vomiting and she presents once again for
evaluation. She denies jaundice or acholic stools. She notes constipation over the past week but was able to pass some bob of stool today with some sensation of relief. On exam, she is tender to the RUQ.
Medical History
Past Medical History
Past Medical History: Reports Asthma, GERD and Psychiatric (bipolar depression)
Past Surgical History: Reports Orthopedic (foot surgery)
Social History
Tobacco: Non-smoker
Alcohol: None
Family History
Family History: Not pertinent
Allergies / Home Medications
Allergies reflects when Allergies were last updated in [employer].
Home Medications with original date entered in [facility]
Allergy/Medication List:
Patient Allergies
Allergy/AdvReac Type Severity Reaction Status Date / Time
No Known Allergies Allergy Verified 05/04/24 11:50
Home meds:
Lorazepam 0.5 mg tablet, 0.5 mg tablet p.o. daily as needed anxiety
Trazodone 50 mg tablet, 50 mg to 100 mg p.o. daily as needed insomnia
Oxcarbazepine 300 mg tablet, take 1 300 mg tablet twice daily
Wellbutrin 150 mg tablet, take 150 mg p.o. daily
Lexapro 25 mg, take 25 mg p.o. daily
Review of Systems
-
History Source: Patient
A 12 point ROS was completed and negative except as noted: Yes
Physical Exam
Vital Signs
Vital Signs
Temp Pulse Resp BP Pulse Ox
98 F 75 16 126/69 100
05/04/24 11:50 05/04/24 14:23 05/04/24 11:50 05/04/24 14:20 05/04/24 14:21
Physical Exam
General: Well Developed and Well Nourished
HEENT: NormoCephalic and Moist mucous membranes
Respiratory: Non Labored Respirations
GI: Soft, Non Distended and Tender (RUQ)
Skin: Warm and Dry
Neuro: Awake, Alert and AO x 3
Psych: Calm
Laboratory Results
-
05/04/24 11:57
05/04/24 11:57
Laboratory Results
Total Bilirubin 0.6 mg/dl (0.2-1.3) 05/04/24 11:57
AST 26 U/L (14-36) 05/04/24 11:57
ALT 22 U/L (0-35) 05/04/24 11:57
Alkaline Phosphatase 140 U/L (38-126) H 05/04/24 11:57
Lipase 161 U/L (23-300) 05/04/24 11:57
Data Reviewed
-
CT Scan: Image Personally Visualized and interpreted, Report Reviewed by me, Discussed with Physician and Discussed with Patient
Ultrasound: Report Reviewed by me, Discussed with Physician and Discussed with Patient
Lab Data: Labs Reviewed by me, Discussed with Physician and Discussed with Patient
Old Records: Reviewed
Impression/Plan
-
IMPRESSION:
58 yo female with recurrent biliary colic presenting with persistent pain with n/v concerning for acute calculous cholecystitis. LFT's normal except for mild elevation in alk phos. Mild leukopenia. Hypokalemia present. RUQ tenderness present on
exam. Noted constipation but denies acholic stools and able to pass BM today. AFVSS.
PLAN:
Check CT of the abd/pelvis to further evaluate
Continue IV zosyn which was initiated in the ED
Trend labs
IVF with NSS at 80ml/hr, Replace KCl
Clears tonight and NPO after MN
Plan OR tomorrow for lap yazmin
c/w home meds
bowel regimen with colace BID
SCDs for VTE ppx
[2024-05-04] MEDS: KCL 40 MEQ PO (16:54)
[2024-05-04] MEDS: COLACE 100 MG PO (19:43)
[2024-05-04] MEDS: PROTONIX 40 MG PO (19:44)
[2024-05-04] MEDS: TRILEPTAL 300 MG PO (19:45)
[2024-05-04] MEDS: DESYREL 50 MG PO (23:28)
[2024-05-05] VITALS (11 sets, daily range): BP systolic 0–121; BP diastolic 52–70; BMI 31.5
[2024-05-05] MEDS: ZOSYN 50 IV ×4 (01:28→20:17)
[2024-05-05] MEDS: NSS 1000 IV ×2 (05:17→20:17)
[2024-05-05 06:29] LABS: Mean Corp Hgb Conc. 36.4 g/dL (33.0-37.0); Mean Corpuscular Hgb 31.3 pg (27.0-31.0); Mean Corpuscular Volume 86.2 fL (81.0-99.0); Mean Platelet Volume 11.1 fL (7.4-10.4); Platelet Count 329 10^3/uL (130-400); Red Blood Cell Count 3.83 10^6/uL (4.20-5.40); Red Cell Dist. Width 11.9 % (11.5-14.5); White Blood Cell Count 3.9 10^3/uL (4.8-10.8)
[2024-05-05 06:51] LABS: ALT (SGPT) 20 U/L (0-35); AST (SGOT) 26 U/L (14-36); Albumin 3.7 g/dl (3.5-5.0); Alkaline Phosphatase 130 U/L (38-126); Blood Urea Nitrogen 2 mg/dl (7-17); Calcium 8.7 mg/dl (8.4-10.2); Carbon Dioxide 29 mmol/L (22-30); Chloride 99 mmol/L (98-107); Estimated Creatinine Clearance 82 ml/min; Glucose 102 mg/dl (70-99); Magnesium 1.7 mg/dl (1.6-2.3); Phosphorus 3.2 mg/dl (2.5-4.5); Potassium 3.5 mmol/L (3.5-5.1); Sodium 137 mmol/L (135-145); Total Bilirubin 0.6 mg/dl (0.2-1.3); Total Protein 6.2 g/dl (6.3-8.2); eGFR > 60.00
[2024-05-05] MEDS: PROTONIX 40 MG PO ×2 (09:02→20:18)
[2024-05-05] MEDS: COLACE 100 MG PO ×2 (09:02→20:18)
[2024-05-05] MEDS: LEXAPRO 20 MG PO (09:02)
[2024-05-05] MEDS: WELLBUTRIN XL (24 hour extended release) 150 MG PO (09:02)
[2024-05-05] MEDS: LEXAPRO 5 MG PO (09:02)
[2024-05-05] MEDS: TRILEPTAL 300 MG PO ×2 (09:08→20:18)
--- NOTE | 2024-05-05 09:48 | W.SUR.PREOP ---
Pre-Operative Surgical Note
-
I have examined this patient prior to the performance of the scheduled procedure.
The patient's condition is unchanged from the time of the current History and
Physical and the patient is able to undergo the scheduled procedure.
--- NOTE | 2024-05-05 12:36 | CM ---
Addendum entered by Kristin Clark 05/05/24 15:53:
Home health referral placed via [facility].
Addendum entered by Kristin Clark 05/05/24 12:48:
CM consult placed for advanced directives. Patient was given packet and CM went over packet with patient. She was given a pen and would like to work on it alone.
Original Note:
Reviewed chart. Patient is here for biliary colic. She is alert and oriented. CM introduced self and role. Patient is independent. She drives. Currently not working. 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 Has a 1st floor apartment
with [address]. Also has a 14 year old daughter who lives in [place]. She does not own any DME. Denies any +SDOHs. Her mother owns a walker. Exlpained commercial DENNISON form to patient, who verbalized understanding and signed. Patient given a copy. Original
placed on patient's clipboard on 1 ACUTE.
Patient stated that she would like to have PT/SN come out to her home upon discharge.
ANTICIPATED DISCHARGE PLAN: Discharge home with [facility] services, when medically cleared.
--- NOTE | 2024-05-05 15:19 | W.IMMPOSTOP ---
Surgical Immed Post Op Note
-
Primary Surgeon: David Ashley MD
Assisting Surgeon: Jase Cottrell MD
Pre-op Diagnosis: Acute cholecystitis
Post-op Diagnosis: Gangrenous cholecystitis
Procedure Performed: Laparoscopic cholecystectomy with cholangiogram
Anesthesia Type: General
Specimen / Cultures: Gallbladder and contents
Estimated Blood Loss: 31 cc
Complications: None
Operative Findings: Veress needle entry. Acutely inflamed gallbladder with severely thickened wall and dense adhesions to the second part of the duodenum there were lysed using sharp and blunt dissection. We performed a top-down cholecystectomy up
to the neck of the gallbladder where a roughly 2 cm stone was lodged. The duct was fully opened and the stone was released. A cholangiogram was performed which demonstrated normal biliary anatomy and no distal filling defects. The duct was closed
with 3 interrupted 0 silk sutures. The field was sprayed with Floseal help with hemostasis and a 19 Japanese round Kingsley drain was introduced through the right lateralmost port and laid across our field. This was secured to the skin with a 2-0 nylon
suture.
POST OP PLAN:
Imaging: None
Labs: Routine AM
Diet: Clears
Analgesia: Tylenol 650mg q6 Aron, Jayda 5mg q6 PRN, Dilaudid 0.5mg q2h PRN
Neuro/vascular checks: q4h
AC/AP: Hold Therapeutic AC, Ok for DVT PPx
Activity: Ad Juanita
Wound/Incisions/Drains: Routine, continue ELIZ to bulb suction. If bile noted in the drain, will consult GI for possible ERCP/stenting.
Abx: Continue Zosyn while admitted, plan for a 4-day course of antibiotics total.
Dispo: RNF
[2024-05-05] MEDS: DILAUDID 0.5 MG IV (17:23)
--- NOTE | 2024-05-05 17:30 | PTCARENOTE ---
Pt received from PACU, currently in 6/10 R sided pain. Pt is slightly drowsy. Vitals obtained. Pt attempting a clear liquid tray for dinner.
[2024-05-05] MEDS: ROXICODONE 5 MG PO ×2 (18:50→22:50)
[2024-05-05] MEDS: DESYREL 50 MG PO (21:58)
[2024-05-06] MEDS: ZOSYN 50 IV ×4 (01:49→19:55)
[2024-05-06] MEDS: DILAUDID 0.5 MG IV ×4 (02:35→22:43)
[2024-05-06] MEDS: ATIVAN 0.5 MG PO (03:36)
[2024-05-06 07:40] VITALS: BP 118/72
[2024-05-06] MEDS: COLACE 100 MG PO ×2 (07:58→19:54)
[2024-05-06] MEDS: WELLBUTRIN XL (24 hour extended release) 150 MG PO (07:59)
[2024-05-06] MEDS: LEXAPRO 20 MG PO (07:59)
[2024-05-06] MEDS: LEXAPRO 5 MG PO (07:59)
[2024-05-06] MEDS: PROTONIX 40 MG PO ×2 (07:59→19:54)
[2024-05-06] MEDS: TRILEPTAL 300 MG PO ×2 (07:59→19:54)
--- NOTE | 2024-05-06 10:54 | VNURNOTE ---
Home Health Liaison met with patient to discuss [facility] nurse/therapy, visits, schedule and homebound status. Patient is agreeable and understands that visits at home will be 2-3 x per week to assess and teach medical and drain management. [facility]
brochure provided with contact information. Patient is aware that [facility] will contact them for start of care in 1-2 days after discharge from .
[facility] referral updated in [facility].
--- NOTE | 2024-05-06 11:27 | W.PN.GS2 ---
Today's Communication / Plan
-
-- LFD
-- Pain control: Tylenol, Toradol, Oxycodone
-- HLIV
-- Maintain ELIZ, likely on DC
-- Zosyn, plan for 4 days total abx
Assessment / Plan
-
Patient is a 58 yo F POD#1 s/p laparoscopic subtotal cholecystectomy with IOC
AVSS
Labs with mild leukopenia, Hb stable, bilirubin and LFTs normal down trending ALP
ELIZ non-bilious
Recovering well overall. Monitor in hospital today due to complexity of procedure and risk for cystic duct stump leak.
-- LFD
-- Pain control: Tylenol, Toradol, Oxycodone
-- HLIV
-- Maintain ELIZ, likely on DC
-- Zosyn, plan for 4 days total abx
-- DVT: Lovenox
-- GI: chronic PPI
Subjective Data
-
Date of Service: May 06, 2024
Reports abdominal discomfort. No nausea or vomiting. No fevers. Passing flatus, no BM. Minimal ambulation.
Objective Data
-
Intake and Output
05/05/24 05/06/24 05/07/24
06:59 06:59 06:59
Intake Total 1939 2560 / 2560 700 / 700
Output Total 40 / 40
Balance 1939 2520 / 2520 700 / 700
Intake:
Oral fluids 960 / 960 840 / 840 650 / 650
IV fluids (Total) 880 / 880 1620 / 1620
normosol 100 / 100
IV piggybacks 100 / 100 100 / 100 50 / 50
Output:
Drain Output (Total) 40 / 40
Right Lower Abdomen Syed- 40 / 40
Olivier
Other:
Number of approximated MODERATE 3 2 1
amounts of urine
Number of approximated LARGE 1
amounts of urine
Vital Signs
Temp Pulse Resp BP Pulse Ox
98.7 F 89 17 118/72 96
05/06/24 07:40 05/06/24 07:40 05/06/24 07:40 05/06/24 07:40 05/06/24 07:40
Lab Results
05/05/24 06:08
05/05/24 06:08
Calcium 8.7 mg/dl (8.4-10.2) 05/05/24 06:08
Phosphorus 3.2 mg/dl (2.5-4.5) 05/05/24 06:08
Magnesium 1.7 mg/dl (1.6-2.3) 05/05/24 06:08
Total Bilirubin 0.6 mg/dl (0.2-1.3) 05/05/24 06:08
AST 26 U/L (14-36) 05/05/24 06:08
ALT 20 U/L (0-35) 05/05/24 06:08
Alkaline Phosphatase 130 U/L (38-126) H 05/05/24 06:08
Total Protein 6.2 g/dl (6.3-8.2) L 05/05/24 06:08
Albumin 3.7 g/dl (3.5-5.0) 05/05/24 06:08
Physical Exam
-
Gen: NAD
Abd: soft, mild tenderness, ND, non-peritoneal, incisions c/d/i - no eriythema, ecchymosis or drainage, ELIZ serosang, non-bilious
[2024-05-06] MEDS: TYLENOL 650 MG PO ×2 (15:32→23:04)
[2024-05-06 15:46] VITALS: BP 121/73
[2024-05-06] MEDS: ROXICODONE 5 MG PO (19:53)
[2024-05-06 22:23] LABS: COVID-19 Antigen Negative (Negative)
--- NOTE | 2024-05-06 22:30 | PTCARENOTE ---
Pt states she had a sore throat prior to coming to the ED a few days ago, reports since she's been here she's had progressive URI sx including sore throat and now a nonproductive cough. Pt spiked a fever this afternoon, blood cultures sent on day
shift. D/w covering SUPERVISOR RESEARCH KENNEL, due to worsening symptoms and pt complaints, flu/Covid specimen ordered and sent. Pt positive for Flu A; pt's roommate relocated to a private room, pt placed on droplet precautions, nursing open pit quarry supervisor aware.
[2024-05-06] MEDS: DESYREL 50 MG PO (22:38)
[2024-05-06 23:11] VITALS: BP 122/69
[2024-05-07] MEDS: ZOSYN 50 IV ×4 (02:07→21:30)
[2024-05-07] MEDS: ROXICODONE 5 MG PO (06:09)
--- NOTE | 2024-05-07 06:51 | W.PN.UPDATE ---
Update Note
Progress Note Update
T max 103 F overnight + Flu A. Tamiflu started.
[2024-05-07 07:28] LABS: Hematocrit 29.4 % (37.0-47.0); Hemoglobin 10.5 g/dL (12.0-16.0); Mean Corp Hgb Conc. 35.7 g/dL (33.0-37.0); Mean Corpuscular Hgb 31.5 pg (27.0-31.0); Mean Corpuscular Volume 88.3 fL (81.0-99.0); Mean Platelet Volume 10.8 fL (7.4-10.4); Platelet Count 206 10^3/uL (130-400); Red Blood Cell Count 3.33 10^6/uL (4.20-5.40); Red Cell Dist. Width 11.9 % (11.5-14.5); White Blood Cell Count 4.1 10^3/uL (4.8-10.8)
[2024-05-07 07:35] VITALS: BP 128/62
[2024-05-07] MEDS: TAMIFLU 75 MG PO ×2 (07:39→21:29)
[2024-05-07] MEDS: TYLENOL 650 MG PO ×3 (07:39→20:47)
[2024-05-07] MEDS: PROTONIX 40 MG PO ×2 (07:39→20:47)
[2024-05-07] MEDS: LEXAPRO 5 MG PO (07:39)
[2024-05-07] MEDS: LEXAPRO 20 MG PO (07:39)
[2024-05-07] MEDS: TRILEPTAL 300 MG PO ×2 (07:39→20:47)
[2024-05-07] MEDS: WELLBUTRIN XL (24 hour extended release) 150 MG PO (07:39)
[2024-05-07] MEDS: COLACE 100 MG PO ×2 (07:40→20:47)
[2024-05-07 07:46] LABS: ALT (SGPT) 47 U/L (0-35); AST (SGOT) 87 U/L (14-36); Albumin 3.1 g/dl (3.5-5.0); Alkaline Phosphatase 142 U/L (38-126); Blood Urea Nitrogen 4 mg/dl (7-17); Calcium 7.8 mg/dl (8.4-10.2); Carbon Dioxide 31 mmol/L (22-30); Chloride 94 mmol/L (98-107); Estimated Creatinine Clearance 94 ml/min; Glucose 105 mg/dl (70-99); Potassium 2.9 mmol/L (3.5-5.1); Sodium 131 mmol/L (135-145); Total Bilirubin 0.6 mg/dl (0.2-1.3); Total Protein 5.4 g/dl (6.3-8.2); eGFR > 60.00
--- NOTE | 2024-05-07 11:15 | PTCARENOTE ---
MD Holcomb notified of abnormal lab values and need for gavin site dressing site change d/t drainage.
[2024-05-07 13:57] LABS: Urine Albumin Negative (Neg - Trace); Urine Bilirubin Negative (Negative); Urine Character Clear (Clear); Urine Color Yellow; Urine Glucose Negative (Negative); Urine Ketone Negative (Negative); Urine Leukocyte Negative (Negative); Urine Nitrite Negative (Negative); Urine Occult Blood Negative (Negative); Urine Specific Gravity 1.005 (<1.030); Urine Urobilinogen Negative (Neg - 1+)
[2024-05-07 15:30] VITALS: BP 130/67
[2024-05-07] MEDS: TORADOL 15 MG IV (15:45)
--- NOTE | 2024-05-07 16:13 | W.PN.GS2 ---
Today's Communication / Plan
-
-- Clears, NPO PM
-- Resume IVF
-- Replete K with Kdur and Cl with IVF --> repeat CMP this afternoon, check Mg
-- Abx: Zosyn, tentative plan for 4 days total abx, started on Tamiflu
Assessment / Plan
-
Patient is a 58 yo F POD#2 s/p laparoscopic subtotal cholecystectomy with IOC
Febrile, VSS
Labs with mild leukopenia, Hb stable, bilirubin normal, LFTs and ALP trending up
ELIZ non-bilious
Fever of unknown exact origin differential includes fluid positive versus intra-abdominal process. UA negative, CXR without infiltrate, BCx pending. ELIZ output reassuring with lack of bilious or feculent outputs (appears in appropriate position on
CXR). Continued abdominal discomfort though non-peritoneal and discomfort not worse from previous. Repeat electrolytes. Repeat CMP to gauge electrolyte repletion and monitor LFTs. If LFTs continue to rise would obtain a CT scan, consider GI
consult.
-- Clears, NPO PM
-- Pain control: Tylenol, Toradol, Oxycodone
-- Resume IVF
-- Replete K with Kdur and Cl with IVF --> repeat CMP this afternoon, check Mg
-- Maintain ELIZ
-- Abx: Zosyn, tentative plan for 4 days total abx, started on Tamiflu, blood cx pending
-- DVT: Lovenox
-- GI: chronic PPI
Subjective Data
-
Date of Service: May 07, 2024
With sore throat and abdominal soreness. Abdominal discomfort worse with movement and coughing. Denies any nausea or vomiting. Passing flatus, no BM. Febrile. Found to be flu positive. Voiding. Ambulating. Denies dizziness or
lightheadedness. No chest pain or shortness of breath. No urinary symptoms.
Objective Data
-
Intake and Output
05/06/24 05/07/24 05/08/24
06:59 06:59 06:59
Intake Total 2560 / 2560 2005 740 / 740
Output Total 250 / 250
Balance 2520 / 2520 1921 / 1921 490 / 490
Intake:
Oral fluids 840 / 840 1856 / 1856 640 / 640
IV fluids (Total) 1620 / 1620
normosol 100 / 100
IV piggybacks 100 / 100 150 / 150 100 / 100
Output:
Drain Output (Total)
Right Lower Abdomen Syed-
Olivier
Urine, Voided 250 / 250
Other:
Number of approximated MODERATE 2 1
amounts of urine
Number of approximated LARGE 1
amounts of urine
How many times incontinent 4
MODERATE amount urine
Vital Signs
Temp Pulse Resp BP Pulse Ox
102.0 F H 83 17 130/67 98
05/07/24 15:30 05/07/24 15:30 05/07/24 15:30 05/07/24 15:30 05/07/24 15:30
Lab Results
05/07/24 06:55
Calcium 7.8 mg/dl (8.4-10.2) L 05/07/24 06:55
Phosphorus 3.2 mg/dl (2.5-4.5) 05/05/24 06:08
Magnesium 1.7 mg/dl (1.6-2.3) 05/05/24 06:08
Total Bilirubin 0.6 mg/dl (0.2-1.3) 05/07/24 06:55
AST 87 U/L (14-36) H 05/07/24 06:55
ALT 47 U/L (0-35) H 05/07/24 06:55
Alkaline Phosphatase 142 U/L (38-126) H 05/07/24 06:55
Total Protein 5.4 g/dl (6.3-8.2) L 05/07/24 06:55
Albumin 3.1 g/dl (3.5-5.0) L 05/07/24 06:55
Physical Exam
-
Gen: NAD, weak
Abd: soft, tender in RUQ, ND, no diffuse peritonitis, incision c/d/i - no erythema, ecchymosis or drainage, ELIZ serosang, non-bilious
[2024-05-07] MEDS: NSS 1000 IV (16:22)
[2024-05-07] MEDS: KCL 40 MEQ PO ×2 (16:29→17:43)
[2024-05-07 16:48] LABS: ALT (SGPT) 43 U/L (0-35); AST (SGOT) 64 U/L (14-36); Albumin 3.1 g/dl (3.5-5.0); Alkaline Phosphatase 137 U/L (38-126); Blood Urea Nitrogen 5 mg/dl (7-17); Calcium 7.9 mg/dl (8.4-10.2); Carbon Dioxide 31 mmol/L (22-30); Chloride 95 mmol/L (98-107); Estimated Creatinine Clearance 94 ml/min; Glucose 102 mg/dl (70-99); Magnesium 1.6 mg/dl (1.6-2.3); Sodium 130 mmol/L (135-145); Total Bilirubin 0.4 mg/dl (0.2-1.3); Total Protein 5.4 g/dl (6.3-8.2); eGFR > 60.00
[2024-05-07] MEDS: DESYREL 50 MG PO (21:29)
[2024-05-07] MEDS: ATIVAN 0.5 MG PO (21:29)
[2024-05-07 23:18] VITALS: BP 96/60
[2024-05-08] MEDS: ZOSYN 50 IV ×4 (02:51→20:32)
[2024-05-08] MEDS: NSS 1000 IV (04:21)
[2024-05-08] MEDS: ROXICODONE 5 MG PO (04:24)
[2024-05-08 07:37] VITALS: BP 133/78
[2024-05-08 08:12] LABS: Hematocrit 30.4 % (37.0-47.0); Hemoglobin 10.5 g/dL (12.0-16.0); Mean Corp Hgb Conc. 34.5 g/dL (33.0-37.0); Mean Corpuscular Hgb 31.2 pg (27.0-31.0); Mean Corpuscular Volume 90.2 fL (81.0-99.0); Mean Platelet Volume 11.2 fL (7.4-10.4); Platelet Count 202 10^3/uL (130-400); Red Blood Cell Count 3.37 10^6/uL (4.20-5.40); Red Cell Dist. Width 12.1 % (11.5-14.5); White Blood Cell Count 1.6 10^3/uL (4.8-10.8)
[2024-05-08 08:48] LABS: ALT (SGPT) 40 U/L (0-35); AST (SGOT) 48 U/L (14-36); Alkaline Phosphatase 125 U/L (38-126); Blood Urea Nitrogen 3 mg/dl (7-17); Carbon Dioxide 27 mmol/L (22-30); Chloride 99 mmol/L (98-107); Estimated Creatinine Clearance 94 ml/min; Glucose 90 mg/dl (70-99); Potassium 3.3 mmol/L (3.5-5.1); Sodium 135 mmol/L (135-145); Total Bilirubin 0.4 mg/dl (0.2-1.3); Total Protein 5.4 g/dl (6.3-8.2); eGFR > 60.00
[2024-05-08] MEDS: TAMIFLU 75 MG PO ×2 (08:49→20:33)
[2024-05-08] MEDS: TRILEPTAL 300 MG PO ×2 (08:50→20:33)
[2024-05-08] MEDS: LEXAPRO 20 MG PO (08:50)
[2024-05-08] MEDS: LEXAPRO 5 MG PO (08:50)
[2024-05-08] MEDS: WELLBUTRIN XL (24 hour extended release) 150 MG PO (08:50)
[2024-05-08] MEDS: COLACE 100 MG PO ×2 (08:50→20:33)
[2024-05-08] MEDS: PROTONIX 40 MG PO ×2 (08:50→20:33)
[2024-05-08] MEDS: TORADOL 15 MG IV ×2 (09:11→20:46)
--- NOTE | 2024-05-08 10:56 | W.PN.GS2 ---
Today's Communication / Plan
-
Tamiflu ordered
Resume regular diet
Isolated leukopenia has been reported in the setting of fluA
Will replete lytes.
Continue antibiotics.
Anticipate discharge tomorrow versus Sunday pending clinical course.
Assessment / Plan
-
Patient is a 58 yo F POD#3 s/p laparoscopic cholecystectomy with IOC and suture ligation of the cystic duct. Now with +FluA.
Tamiflu ordered
Resume regular diet
Isolated leukopenia has been reported in the setting of fluA
Will replete lytes.
Continue antibiotics.
Anticipate discharge tomorrow versus Sunday pending clinical course.
Time Spent
Total Time Spent with Patient (in minutes): 20
Subjective Data
-
Date of Service: May 08, 2024
Interval Events:
No acute events overnight. Still intermittently febrile. Now leukopenic to 1.6K. Still has some residual hypokalemia. Pain Controlled. Denies Nausea/Vomiting, +bowel function. Tolerating diet.
Objective Data
-
Intake and Output
05/07/24 05/08/24 05/09/24
06:59 06:59 06:59
Intake Total 2005 2465 / 2465
Output Total 1295 / 1295
Balance 192 / 192 1170 / 1170
Intake:
Oral fluids 1856 / 1856 1120 / 1120
IV fluids (Total) 1145 / 1145
IV piggybacks 150 / 150 200 / 200
Output:
Drain Output (Total) 45 / 45
Right Lower Abdomen Syed-
Olivier
Urine, Voided 1250 / 1250
Other:
Number of approximated MODERATE 1 2
amounts of urine
How many times incontinent 4
MODERATE amount urine
Vital Signs
Temp Pulse Resp BP Pulse Ox
98.7 F 69 18 133/78 98
05/08/24 07:37 05/08/24 07:37 05/08/24 07:37 05/08/24 07:37 05/08/24 07:37
Lab Results
05/08/24 07:19
05/08/24 07:19
Calcium 8.0 mg/dl (8.4-10.2) L 05/08/24 07:19
Phosphorus 3.2 mg/dl (2.5-4.5) 05/05/24 06:08
Magnesium 1.6 mg/dl (1.6-2.3) 05/07/24 16:22
Total Bilirubin 0.4 mg/dl (0.2-1.3) 05/08/24 07:19
AST 48 U/L (14-36) H 05/08/24 07:19
ALT 40 U/L (0-35) H 05/08/24 07:19
Alkaline Phosphatase 125 U/L (38-126) 05/08/24 07:19
Total Protein 5.4 g/dl (6.3-8.2) L 05/08/24 07:19
Albumin 3.0 g/dl (3.5-5.0) L 05/08/24 07:19
Physical Exam
-
GENERAL/NEURO: Awake, Alert, no distress
CHEST: Unlabored breathing on RA
ABDOMEN: Soft, appropriately tender, Non-Distended, ELIZ serous sang, incisions otherwise clean dry and intact.
[2024-05-08] MEDS: KCL 40 MEQ PO (11:44)
[2024-05-08] MEDS: D5/0.45%NSS with KCL 10 MEQ 1000 IV (11:44)
[2024-05-08] MEDS: VENTOLIN NEBULES 2.5 MG INH (13:51)
--- NOTE | 2024-05-08 14:32 | OR.RPT ---
Operative Report
Operative Report
Patient Name: Malissa Deras
: 11/23/1957
Date of Operation: 05/05/24
Preoperative Diagnosis: Acute cholecystitis
Postoperative Diagnosis: Gangrenous cholecystitis
Procedure(s):
Laparoscopic Cholecystectomy with Cholangiogram
Surgeon(s):
Dr. Ashley
Surgical Clinical Reviewer(s):
Jase Cottrell MD
TAMANNA Camilo
Anesthesia: General
Estimated Blood Loss: 31 cc
Urine Output: None
Drains/Lines/Implants: None
Specimens:
1. Gallbladder and contents
HPI/Surgical Indications:
This is a 58-year-old female who presents with a 7-day history of right upper quadrant abdominal pain. Exam, labs and imaging are consistent with acute cholecystitis. Risks/Benefits/Alternatives were discussed at length, and the patient agreed to
proceed with surgery.
Operative Findings: Veress needle entry. Acutely inflamed gallbladder with severely thickened wall and dense adhesions to the second part of the duodenum there were lysed using sharp and blunt dissection. We performed a top-down cholecystectomy up
to the neck of the gallbladder where a roughly 2 cm stone was lodged. The duct was fully opened and the stone was released. A cholangiogram was performed which demonstrated normal biliary anatomy and no distal filling defects. The duct was closed
with 3 interrupted 0 silk sutures. The field was sprayed with Floseal help with hemostasis and a 19 British round Kingsley drain was introduced through the right lateralmost port and laid across our field. This was secured to the skin with a 2-0 nylon
suture.
Procedure Description:
The patient was brought to the Operating Room and placed in the supine position with one arm tucked. Following uneventful induction of general endotracheal anesthesia, an orogastric tube was placed. The abdomen was prepped and draped in the usual
sterile fashion. A timeout was performed confirming the procedure, consent, and that IV antibiotics were infused and sequential compression devices were confirmed to be on. The abdomen was entered using a left subcostal Veress technique which
required a single pass followed by a 5 mm right upper quadrant Optiview trocar. Pneumoperitoneum to 15 mmHg pressure was obtained without difficulty and we confirmed that no injury had occurred during our entry. The patient was positioned in
reverse Trendelenberg and rotated with the right side up slightly. Two 5 mm trocars were then placed along the right subcostal margin, followed by a 12 mm port in the epigastrium. The gallbladder was emptied using a decompressing needle through
the fundus of the gallbladder with evacuation of hydrops before A locking grasping forceps was placed on the fundus of the gallbladder where it was then retracted cephalad and to the right. Using appropriate grasping instruments, the peritoneum
overlying the triangle of Calot was incised and extended superiorly on both the anterior and posterior gallbladder arndt. The gallbladder wall was markedly thickened and there was patchy areas of necrotic gallbladder. We elected to switch to a
top-down cholecystectomy and was able to get into a good plane behind the gallbladder which we took down to the infundibulum. Here there was a 2 cm gallstone that was lodged in the cystic duct so the duct was opened and the gallstone was freed.
The gallbladder along with the stone specimen was placed in an Endo Catch bag with minimal spillage. A cholangiocatheter on an Casillas clamp was inserted into the cystic duct. A C-arm was draped and brought into the field. An intra-operative
cholangiogram was performed and was noted to have:
No filling defects in the biliary tree
No significant biliary dilation
Brisk flow of contrast into the duodenum
Normal biliary anatomy
The catheter was then removed and the cystic duct was controlled with 3 interrupted 0 silk sutures. Field was sprayed with Floseal to ensure hemostasis and a 19 British round Kingsley drain was then introduced through the right lateral-most port and
laid across our field. This was secured the skin with a 2-0 nylon suture. The gallbladder was extracted through the 12 mm trocar site using an endocatch bag, which was then closed with a 0 PDS [id number] suture. The abdomen was again irrigated
and excellent hemostasis was assured. All remaining trocars were then removed and the pneumoperitoneum was evacuated. All trocar sites were closed at the skin level using 4-0 Monocryl followed by Dermabond. Overall, the patient tolerated the
procedure well and was taken to the Recovery Room postoperatively in stable condition.
I was the attending physician and performed the procedure with assistance from Dr. Cottrell who is instrumental in providing tension and counter tension in this very challenging gallbladder. I was present for all portions of the case, excluding skin
closure which was performed by the MOBI[employer] HE[employer] VEHICLE OPERATOR above.
David Ashley MD
[2024-05-08 16:10] VITALS: BP 129/73
[2024-05-08] MEDS: ATIVAN 0.5 MG PO (22:20)
[2024-05-08] MEDS: DESYREL 50 MG PO (22:20)
[2024-05-08 23:50] VITALS: BP 108/82
[2024-05-09] MEDS: ZOSYN 50 IV ×4 (02:40→20:14)
--- NOTE | 2024-05-09 02:49 | PTCARENOTE ---
Pt c/o no being able to sleep despite receiving PRN ativan and trazodone at HS (refer to [facility]). Assisted w/finding guided sleep meditation on Ipad.
[2024-05-09 07:28] LABS: ALT (SGPT) 32 U/L (0-35); AST (SGOT) 36 U/L (14-36); Albumin 3.1 g/dl (3.5-5.0); Alkaline Phosphatase 118 U/L (38-126); Blood Urea Nitrogen 4 mg/dl (7-17); Calcium 8.6 mg/dl (8.4-10.2); Carbon Dioxide 28 mmol/L (22-30); Chloride 100 mmol/L (98-107); Estimated Creatinine Clearance 94 ml/min; Glucose 105 mg/dl (70-99); Potassium 3.5 mmol/L (3.5-5.1); Sodium 134 mmol/L (135-145); Total Bilirubin 0.3 mg/dl (0.2-1.3); Total Protein 5.7 g/dl (6.3-8.2); eGFR > 60.00
[2024-05-09] MEDS: TAMIFLU 75 MG PO ×2 (07:43→20:14)
[2024-05-09] MEDS: LEXAPRO 20 MG PO (07:43)
[2024-05-09] MEDS: PROTONIX 40 MG PO ×2 (07:43→20:14)
[2024-05-09] MEDS: COLACE 100 MG PO ×2 (07:43→20:14)
[2024-05-09] MEDS: WELLBUTRIN XL (24 hour extended release) 150 MG PO (07:43)
[2024-05-09] MEDS: LEXAPRO 5 MG PO (07:43)
[2024-05-09] MEDS: D5/0.45%NSS with KCL 10 MEQ 1000 IV (07:43)
[2024-05-09] MEDS: TRILEPTAL 300 MG PO ×2 (07:43→20:14)
[2024-05-09 08:00] VITALS: BP 146/64
[2024-05-09 08:26] LABS: Hematocrit 30.6 % (37.0-47.0); Hemoglobin 11.1 g/dL (12.0-16.0); Mean Corp Hgb Conc. 36.3 g/dL (33.0-37.0); Mean Corpuscular Hgb 31.8 pg (27.0-31.0); Mean Corpuscular Volume 87.7 fL (81.0-99.0); Mean Platelet Volume 11.4 fL (7.4-10.4); Platelet Count 228 10^3/uL (130-400); Red Blood Cell Count 3.49 10^6/uL (4.20-5.40); Red Cell Dist. Width 11.9 % (11.5-14.5)
--- NOTE | 2024-05-09 09:05 | W.PN.GS2 ---
Today's Communication / Plan
-
Continue drain
Continue diet
Assessment / Plan
-
Patient is a 58 yo F POD#4 s/p laparoscopic cholecystectomy with IOC and suture ligation of the cystic duct.
Now with +FluA with associated leukopenia, which is improved
ELIZ with nonbilious outputs, normal bilirubin levels
AFVSS
Plan:
Continue tamiflu
Resume regular diet
Gentle IVF
Continue antibiotics through today
Anticipate discharge later today vs more likely Sunday pending clinical course.
Subjective Data
-
Date of Service: May 09, 2024
Patient seen and examined with Dr. Philip. Arriaga n/v. Feels very tired/weak. pain well managed.
Objective Data
-
Intake and Output
05/08/24 05/09/24 05/10/24
06:59 06:59 06:59
Intake Total 2465 / 2465 1130 / 1130
Output Total 1295 / 1295 45 / 45
Balance 1170 / 1170 1085 / 1085
Intake:
Oral fluids 1120 / 1120 480 / 480
IV fluids (Total) 1145 / 1145 550 / 550
IV piggybacks 200 / 200 100 / 100
Output:
Drain Output (Total) 45 / 45 45 / 45
Right Lower Abdomen Syed- 45 / 45 45 / 45
Olivier
Urine, Voided 1250 / 1250
Other:
Number of approximated MODERATE 2 4
amounts of urine
How many times incontinent 4
MODERATE amount urine
Vital Signs
Temp Pulse Resp BP Pulse Ox
98.9 F 61 16 146/64 96
05/09/24 08:00 05/09/24 08:02 05/09/24 08:02 05/09/24 08:00 05/09/24 08:02
Lab Results
05/09/24 06:52
05/09/24 06:52
Calcium 8.6 mg/dl (8.4-10.2) 05/09/24 06:52
Phosphorus 3.2 mg/dl (2.5-4.5) 05/05/24 06:08
Magnesium 1.6 mg/dl (1.6-2.3) 05/07/24 16:22
Total Bilirubin 0.3 mg/dl (0.2-1.3) 05/09/24 06:52
AST 36 U/L (14-36) 05/09/24 06:52
ALT 32 U/L (0-35) 05/09/24 06:52
Alkaline Phosphatase 118 U/L (38-126) 05/09/24 06:52
Total Protein 5.7 g/dl (6.3-8.2) L 05/09/24 06:52
Albumin 3.1 g/dl (3.5-5.0) L 05/09/24 06:52
Physical Exam
-
GENERAL/NEURO: Awake, Alert, no distress
CHEST: Unlabored breathing on RA
ABDOMEN: Soft, appropriately tender, Non-Distended, ELIZ serous sang, incisions otherwise clean dry and intact.
--- NOTE | 2024-05-09 12:57 | CM ---
Chart reviewed and registered nurse hh case manager met with patient this am and plan is to home with [facility] when stable.
Plan; Home with [facility], patient has switched to inpatient and patient made aware of inpatient status.
[2024-05-09 16:00] VITALS: BP 116/72
[2024-05-09] MEDS: COMPAZINE 10 MG IV (17:38)
[2024-05-09 23:46] VITALS: BP 119/59
[2024-05-10] MEDS: D5/0.45%NSS with KCL 10 MEQ 1000 IV (02:47)
[2024-05-10] MEDS: ZOSYN 50 IV ×3 (02:47→13:30)
[2024-05-10 07:00] VITALS: BP 119/75
[2024-05-10 07:22] LABS: Hematocrit 30.5 % (37.0-47.0); Hemoglobin 10.7 g/dL (12.0-16.0); Mean Corp Hgb Conc. 35.1 g/dL (33.0-37.0); Mean Corpuscular Volume 88.4 fL (81.0-99.0); Mean Platelet Volume 10.8 fL (7.4-10.4); Platelet Count 227 10^3/uL (130-400); Red Blood Cell Count 3.45 10^6/uL (4.20-5.40); Red Cell Dist. Width 12.1 % (11.5-14.5); White Blood Cell Count 2.9 10^3/uL (4.8-10.8)
[2024-05-10 07:58] LABS: ALT (SGPT) 25 U/L (0-35); AST (SGOT) 31 U/L (14-36); Albumin 3.1 g/dl (3.5-5.0); Alkaline Phosphatase 98 U/L (38-126); Blood Urea Nitrogen 3 mg/dl (7-17); Calcium 8.2 mg/dl (8.4-10.2); Carbon Dioxide 24 mmol/L (22-30); Chloride 100 mmol/L (98-107); Estimated Creatinine Clearance 94 ml/min; Glucose 112 mg/dl (70-99); Potassium 3.5 mmol/L (3.5-5.1); Sodium 135 mmol/L (135-145); Total Bilirubin 0.4 mg/dl (0.2-1.3); Total Protein 5.4 g/dl (6.3-8.2); eGFR > 60.00
[2024-05-10] MEDS: PROTONIX 40 MG PO (08:12)
[2024-05-10] MEDS: TAMIFLU 75 MG PO ×2 (08:12→18:07)
[2024-05-10] MEDS: TRILEPTAL 300 MG PO (08:12)
[2024-05-10] MEDS: LEXAPRO 20 MG PO (08:12)
[2024-05-10] MEDS: LEXAPRO 5 MG PO (08:12)
[2024-05-10] MEDS: COLACE 100 MG PO (08:12)
[2024-05-10] MEDS: WELLBUTRIN XL (24 hour extended release) 150 MG PO (08:12)
--- NOTE | 2024-05-10 10:59 | W.PN.GS2 ---
Today's Communication / Plan
-
dispo planning
Assessment / Plan
-
Patient is a 58 yo F presenting with ACC and now POD#5 s/p laparoscopic cholecystectomy with IOC and suture ligation of the cystic duct.
+FluA with associated leukopenia, which is improved
ELIZ with nonbilious outputs, normal bilirubin levels
AFVSS
Plan:
Continue tamiflu
Resume regular diet
Can d/c abx
ELIZ removed at bedside
Discharge today
Subjective Data
-
Date of Service: May 10, 2024
Patient seen and examined at bedside with Dr. Berumen. Feeling better today, a bit more energy. Some incisional pain but minimal. Denies n/v. Tolerating diet.
Objective Data
-
Intake and Output
05/09/24 05/10/24 05/11/24
06:59 06:59 06:59
Intake Total 1130 / 1130 800 / 800
Output Total 45 / 45 35 / 35
Balance 1085 / 1085 765 / 765
Intake:
Oral fluids 480 / 480
IV fluids (Total) 550 / 550 600 / 600
IV piggybacks 100 / 100 200 / 200
Output:
Drain Output (Total) 45 / 45 35 / 35
Right Lower Abdomen Syed- 45 / 45 35 / 35
Olivier
Other:
Number of approximated MODERATE 4 2
amounts of urine
Vital Signs
Temp Pulse Resp BP Pulse Ox
98.5 F 64 18 119/75 96
05/10/24 07:00 05/10/24 07:00 05/10/24 07:00 05/10/24 07:00 05/10/24 07:00
Lab Results
05/10/24 07:05
05/10/24 07:05
Calcium 8.2 mg/dl (8.4-10.2) L 05/10/24 07:05
Phosphorus 3.2 mg/dl (2.5-4.5) 05/05/24 06:08
Magnesium 1.6 mg/dl (1.6-2.3) 05/07/24 16:22
Total Bilirubin 0.4 mg/dl (0.2-1.3) 05/10/24 07:05
AST 31 U/L (14-36) 05/10/24 07:05
ALT 25 U/L (0-35) 05/10/24 07:05
Alkaline Phosphatase 98 U/L (38-126) 05/10/24 07:05
Total Protein 5.4 g/dl (6.3-8.2) L 05/10/24 07:05
Albumin 3.1 g/dl (3.5-5.0) L 05/10/24 07:05
Physical Exam
-
GENERAL/NEURO: Awake, Alert, no distress
CHEST: Unlabored breathing on RA
ABDOMEN: Soft, appropriately tender, Non-Distended, ELIZ serous sang outputs which are minimal, incisions otherwise clean dry and intact.
--- NOTE | 2024-05-10 12:23 | W.DCSUMMARY ---
Discharge Summary
Discharge Data
Date of Admission: 05/04/24
Date of Discharge: 05/10/24
-
Pending Results: No
Hospital Course
58 yo female who presented through the emergency room with RUQ discomfort with nausea and vomiting and was found to have acute calculous cholecystitis. She was taken to the OR for laparoscopic cholecystectomy with gangrenous cholecystitis noted
intraoperatively and ELIZ drain left in place in the immediate post operative period. The patient's bilirubin levels remained normal post operatively with low nonbilious serosanguineous outputs from the drain. Diet was advanced and well tolerated with
drain removed on post operative day 5 just prior to discharge. Her course of stay was complicated by high fevers accompanied by leukopenia noted the day after surgery with infectious work up notable for Influenza A. She was initiated on IV fluids
and Tamiflu for symptom management. She had improvement in symptoms and resolution of fevers and leukopenia prior to discharge.
Discharge Plan
-
Patient Disposition: Home (Routine Discharge)
Discharge Diagnosis/Procedures: Acute cholecystitis with laparoscopic cholecystectomy
Influenza type A
Condition: Good
Diet: As tolerated and Low Fat
Activity: No strenuous activity
Bathing Restrictions: OK to Shower
Other Services: VN
Wound Care: Cover the site where your drain was with a dry gauze dressing and change it daily until no more drainage is present. Ok to remove for showers and then apply a clean dressing.
Activity Restrictions/Additional Instructions:
Instructions following Laparoscopic cholecystectomy
Please call [phone] if you have any questions or concerns after your surgery.
Wound Care:
Your incisions are covered with skin glue which will come off on it�s own in 5-10 days.
It is ok to shower the day after your surgery. Do not scrub the incisions, let soap and water wash over them and pat dry.
� Bruising around your incisions is normal.
� Using ice packs will help minimize this swelling.
� No swimming or soaking incisions for 1 week.
� Your stitches will dissolve and do not need to be removed.
Urinary retention:
If you are unable to urinate 6-8 hours after your surgery, please call [phone] to discuss further management.
Activity:
No heavy lifting more than 15 pounds for the next 3 weeks, then you may gradually lift heavier objects as tolerated by discomfort. Otherwise activity as tolerated by your comfort level.
Pain Management:
Use Tylenol, ibuprofen and ice packs to treat your pain.
� You may take 650 milligrams of Tylenol (Max 3 grams per day) every 6 hours, and 600 mg of ibuprofen also every 6 hours. (you can alternate them every 3 hours)
� You may use an ice pack to your incision as needed.
� If you still have pain not controlled by these measures, take your prescription pain medication as prescribed.
Medications:
You may resume your home medications.
Bowel Medications:
Prescription pain medication can make you constipated. If you take this medication, also take colace 100 mg twice daily (this is over the counter). If this is not sufficient, you may take Miralax (polyethylene glycol) to help move your bowels.
Diet:
After your procedure, there are no dietary restrictions. You may notice loose stools for up to 4 weeks after surgery with fatty meals, if this is the case you may have to adjust your diet as needed.
Driving restrictions:
No driving if you are taking prescription pain medication or if you think your normal reaction time and attentiveness has been slowed by your surgery.
Things to Look out for:
Worsening Abdominal pain, redness or drainage from incision
Call Doctor for:
Please call if you notice worsening redness or drainage from incision(s) lasting longer than 5 days after your surgery, any foul-smelling drainage from the incision, pain not controlled by pain medications, persistent nausea and vomiting, or for any
fevers greater than 101.3 F. The number for questions/concerns is [phone]
Follow-up:
Follow-up appointment will be scheduled with your surgeon in 3-4 weeks. Please call prior to your appointment if you have any questions or concerns. [phone]
Referrals:
John Jorgensen MD [Family Provider] -
David Ashley MD [Active] - in two to four weeks
Additional Discharge Medication Instructions: Take over the counter Tylenol and Motrin for pain as needed
Prescriptions:
New
oseltamivir 75 mg Capsule
75 mg PO BID Qty: 4 0RF
Continued
trazodone 50 mg Tablet
50 mg PO HSPRN PRN (Reason: insomnia)
oxcarbazepine 300 mg Tablet
300 mg PO BID
lorazepam 0.5 mg Tablet
0.5 mg PO DAILYPRN PRN (Reason: anxiety)
albuterol 90 mcg/actuation Aerosol
1 mcg INHALATION Q4 PRN (Reason: wheezing)
escitalopram oxalate 20 mg Tablet
20 mg PO DAILY
bupropion HCl [Wellbutrin XL] 150 mg Tablet Extended Release 24 Hr
150 mg PO DAILY
escitalopram oxalate 5 mg Tablet
5 mg PO DAILY
esomeprazole magnesium [Nexium] 40 mg Capsule,Delayed Release(Dr/Ec)
40 mg PO DAILY
[facility] cmb#95-ferrous fumarate-FA [] 28 mg iron- 800 mcg Tablet
1 tab PO DAILY
Discharge Orders:
Discharge Patient (As Directed); Ordered 05/10/24
Ordered By: Shannon Rod
Discharge Date and Time
Print Language: ITALIAN
[2024-05-10 16:28] VITALS: BP 126/68
== END 2024-05-10 18:30 | disposition home health service (06) | DRG 419 ==
LOC: 1 ACUTE 09:41
PROVIDERS: Registered Nurse; Surgery; ADMITTING PHYSICIAN Surgery; EMERGENCY PHYSICIAN Emergency Medicine; FAMILY PHYSICIAN Family Medicine
PROC: BF522Z0 Other Imaging of Gallbladder using Fluorescing Agent, Intraoperative (ICD-10-PCS; 2024-05-09)
PROC: 0FT44ZZ Resection of Gallbladder, Percutaneous Endoscopic Approach (ICD-10-PCS; 2024-05-09)
DX: K80.00 Calculus of gallbladder with acute cholecystitis without obstruction (principal); K82.A1 Gangrene of gallbladder in cholecystitis; J10.1 Influenza due to other identified influenza virus with other respiratory manifestations; D72.819 Decreased white blood cell count, unspecified
CPT/HCPCS: 88304; 71046; 74160; 74300; 76000; 80053; 81003; 83690; 83735; 84100; 85025; 85027; 87040; 87502; 87811; 93005; 94640; 96361; 96374; 99285; A4300; J3480; Q9967

== ENCOUNTER 2025-02-10 13:13 | Emergency (ER) | payer OTHER, SELFPAY ==
[2025-02-10 13:25] VITALS: BP 155/84
[2025-02-10 16:04] LABS: Hematocrit 36.1 % (37.0-47.0); Hemoglobin 13.1 g/dL (12.0-16.0); Mean Corp Hgb Conc. 36.3 g/dL (33.0-37.0); Mean Corpuscular Volume 90.0 fL (81.0-99.0); Nucleated Red Blood Cells % 0 %; Platelet Count 294 10^3/uL (130-400); Red Cell Dist. Width 11.4 % (11.5-14.5)
[2025-02-10 16:19] LABS: ALT (SGPT) 24 U/L (0-35); AST (SGOT) 28 U/L (14-36); Albumin 4.5 g/dl (3.5-5.0); Alkaline Phosphatase 98 U/L (38-126); Blood Urea Nitrogen 14 mg/dl (7-17); Calcium 9.6 mg/dl (8.4-10.2); Carbon Dioxide 30 mmol/L (22-30); Chloride 103 mmol/L (98-107); Glucose 123 mg/dl (70-99); Potassium 4.6 mmol/L (3.5-5.1); Sodium 137 mmol/L (135-145); Total Protein 7.3 g/dl (6.3-8.2); eGFR > 60.00
--- NOTE | 2025-02-10 18:17 | ED.GENMED ---
History of Present Illness
General
Chief Complaint: Abnormal Lab Value
Source: patient
Exam Limitations: none
Time Seen by Provider: 02/10/25 16:03
Nursing documentation reviewed up to this point in time: agreed with
History of Present Illness
History of Present Illness:
The patient is a 59-year-old female past ministry of bipolar disorder taking multiple psych meds presenting to the emergency department for repeated lab work. She did have a low sodium 2 weeks ago and has had difficulty with follow-up and has not
seen software project manager yet. Has had some changes in her psychiatric medications as well.
Past History
Past History
ED Past Medical History: GERD and Psychiatric
Social History
Living: with family
Employment: Employed
Review of Systems
Review of Systems
Allergies reviewed?: Yes
All Other Systems: ROS reviewed and negative except as documented in HPI and ROS
Phy Exam
Physical Exam
Physical Exam:
GENERAL: Alert , in no apparent distress
EYE: pupils equal and reactive
NECK: Supple, no significant adenopathy.
ENT: o/p clr, mmm.
CARDIAC: Regular rate and rhythm .
LUNGS: Clear breath sounds bilaterally, no acute respiratory distress, no wheezes/rales/rhonchi
ABDOMEN: Soft, without focal tenderness, no r/g, no cvat
NEUROLOGICAL: Alert and oriented, no focal neuro deficits
SKIN: Warm and dry, skin intact.
MUSCULOSKELETAL: No edema, well perfused.
PSYCH: Normal and appropriate interaction.
Course
Orders/Labs/Results
Orders:
Orders
02/10/25 15:54
CMP [Comprehensive Metabolic Panel] Urgent
Complete Blood Count/With Diff Urgent
Abnormal Lab Results
02/10/25
15:54
RBC 4.01 L 10^6/uL
(4.20-5.40)
Hct 36.1 L %
(37.0-47.0)
MCH 32.7 H pg
(27.0-31.0)
RDW 11.4 L %
(11.5-14.5)
Glucose 123 H mg/dl
(70-99)
02/10/25 15:54
02/10/25 15:54
Vital Signs
Initial and Last Documented VS:
Initial Vital Signs
Temp Pulse Resp BP Pulse Ox
99 F 82 20 155/84 99
02/10/25 13:25 02/10/25 13:25 02/10/25 13:25 02/10/25 13:25 02/10/25 13:25
Last Documented Vital Signs
Temp Pulse Resp BP Pulse Ox
99 F 82 20 155/84 99
02/10/25 13:25 02/10/25 13:25 02/10/25 13:25 02/10/25 13:25 02/10/25 13:25
MDM/Problems Addressed
MDM/Problems Addressed:
59-year-old female presenting to the emergency department today with concerns that she had a low sodium 2 weeks ago has had difficulty with follow-up. Here on arrival vital signs are normal labs unremarkable sodium level is normal. She has been
following the directions of decreased free water intake. Otherwise she stable for discharge and close outpatient follow-up. Return precautions given.
*Pulse Oximetry
SaO2: 99
Oxygen Mode of Delivery: Room air
Patient hypoxic: no (99)
*Critical Care Note
Total Time (30-74mins, 75-104mins- exclusive of procedures): Not Applicable
ED Attending Note
-
Portions of this chart may have been created with voice recognition software.� Occasional wrong word or��sound alike� substitutions may have occurred due to the inherent limitations of voice recognition software.
Discharge Plan
Departure
Patient Disposition: Home (Routine Discharge)
Date of Disposition: 02/10/25
Time of Disposition: 18:20
Patient with high blood pressure during this ER visit?: No
Condition: Good
Covid-19: Not Applicable
Discharge Problem:
Medication therapy changed
Instructions: Hyponatremia
Prescriptions:
No Action
trazodone 50 mg Tablet
50 mg PO HSPRN PRN (Reason: insomnia)
oxcarbazepine 300 mg Tablet
300 mg PO BID
lorazepam 0.5 mg Tablet
0.5 mg PO DAILYPRN PRN (Reason: anxiety)
albuterol 90 mcg/actuation Aerosol
1 mcg INHALATION Q4 PRN (Reason: wheezing)
escitalopram oxalate 20 mg Tablet
20 mg PO DAILY
bupropion HCl [Wellbutrin XL] 150 mg Tablet Extended Release 24 Hr
150 mg PO DAILY
escitalopram oxalate 5 mg Tablet
5 mg PO DAILY
esomeprazole magnesium [Nexium] 40 mg Capsule,Delayed Release(Dr/Ec)
40 mg PO DAILY
PNV no.95-ferrous fumarate-FA [] 28 mg iron- 800 mcg Tablet
1 tab PO DAILY
oseltamivir 75 mg Capsule
75 mg PO BID Qty: 4 0RF
Referrals:
John Jorgensen MD [Family Provider, [facility]]
Activity Restrictions/Additional Instructions:
You came to the emergency department today for reassessment. Here your reassuring laboratory work. Please follow closely as an outpatient over the next week. Return for any worsening, new or concerning symptoms.
Interventions
Interventions:
*Risk Screen - Suicide Last Done: 02/10/25 13:24
*General Assessment Last Done: 02/10/25 16:38
*Neglect/Abuse Screening Last Done: 02/10/25 16:38
*ED- Fall Risk Assessment Last Done: 02/10/25 16:38
*ED COVID-19 Vaccine History Last Done: 02/10/25 16:12
*ED Influenza Vaccine History Last Done: 02/10/25 16:12
Discharge Date and Time
Print Language: BELARUSIAN
[2025-02-10 18:26] VITALS: BP 143/81
== END 2025-02-10 20:01 | disposition home or self-care (01) ==
LOC: EMR 13:13
PROVIDERS: Emergency Medicine; EMERGENCY PHYSICIAN Emergency Medicine; FAMILY PHYSICIAN Family Medicine
DX: Z04.89 Encounter for examination and observation for other specified reasons (principal); F31.9 Bipolar disorder, unspecified; Z79.899 Other long term (current) drug therapy
CPT/HCPCS: 99283; 80053; 85025